=== PATIENT | female | born 1990 | race African-American/Black ===

== ENCOUNTER 2017-02-26 03:17 | Emergency (ER) | payer MEDICAID, OTHER ==
[~2017-02-26] VITALS: Ht 175.3 cm; Wt 77.0 kg
[2017-02-26] MEDS ORDERED: ONDANSETRON 4MG ODT PO ONE (04:30)
[2017-02-26] MEDS ORDERED: HYDROCODONE/ACETAMINOPHEN 5/325MG TABLET PO ONE ×2 (04:30→06:00)
[2017-02-26 09:09] VITALS: BP 115/78
== END 2017-02-26 09:17 | disposition home or self-care (01) ==
LOC: ER 03:17
DX: S63.502A Unspecified sprain of left wrist, initial encounter (principal); S16.1XXA Strain of muscle, fascia and tendon at neck level, initial encounter; V49.9XXA Car occupant (driver) (passenger) injured in unspecified traffic accident, initial encounter; Y93.89 Activity, other specified; Y92.89 Other specified places as the place of occurrence of the external cause; Y99.8 Other external cause status
CPT/HCPCS: 29125; 72040; 73110; 81025; 99284; Q0162

== ENCOUNTER 2021-02-23 12:48 | Emergency (ER) | payer MEDICAID ==
[~2021-02-23] VITALS: Ht 165.1 cm; Wt 68.0 kg
[2021-02-23] MEDS ORDERED: FAMOTIDINE 20MG/2ML VIAL IV STA (13:04)
[2021-02-23] MEDS ORDERED: MORPHINE SULFATE 4 MG/ML CPJ (NOT FOR IM USE) IV STA (13:04)
[2021-02-23] MEDS ORDERED: ONDANSETRON HCL 4MG/2ML INJ IV STA (13:04)
[2021-02-23] MEDS ORDERED: SODIUM CHLORIDE 0.9% 1,000 ML IV ONE (13:15)
[2021-02-23 14:04] LABS: BASOPHILS % 0.6 % (0.0-2.0); EOSINOPHILS % 1.2 % (0.0-5.0); HEMATOCRIT. 30.6 % (36.0-48.0); HEMOGLOBIN. 10.5 g/dL (12.0-16.0); LYMPHOCYTES % 15.9 % (20.0-50.0); MEAN CORPUSCULAR HEMOGLOBIN 31.9 pg (28.0-32.0); MEAN CORPUSCULAR VOLUME 93.2 fL (81.0-99.0); MEAN PLATELET VOLUME 7.5 fl (7.4-10.4); NEUTROPHILS % 72.3 % (40.0-76.0); PLATELET 348 x1000/uL (130-400); RED BLOOD CELL COUNT 3.29 mill/uL (4.2-5.4); RED CELL DISTRIBUTION WIDTH 12.6 % (11.6-14.6)
[2021-02-23 14:12] LABS: INR 1.2; PROTHROMBIN TIME 12.5 sec (9.6-11.0)
[2021-02-23 14:13] LABS: HCG SCREEN NEGATIVE
[2021-02-23] MEDS ORDERED: MORPHINE SULFATE 2 MG/ML CPJ (NOT FOR IM USE) IV ONE ×2 (14:15)
[2021-02-23 16:03] LABS: CHLORIDE 108 mEq/L (98-107)
[2021-02-23] MEDS ORDERED: KETOROLAC 15MG/ML VIAL IV ONE (17:30)
[2021-02-23 20:19] VITALS: BP 105/63
== END 2021-02-23 20:22 | disposition home or self-care (01) ==
LOC: ER 12:55
DX: R10.13 Epigastric pain (principal)
CPT/HCPCS: 36415; 74176; 76705; 76830; 76856; 80053; 81025; 83690; 84703; 85025; 85610; 86850; 86900; 86901; 96361; 96374; 96375; 99285; J1885; J2270; J2405; J7030